=== PATIENT | male | born 1970 ===

== ENCOUNTER 2021-11-10 00:21 | Emergency (ER) | payer SELFPAY ==
[2021-11-10] MEDS ORDERED: Ibuprofen 800 MG TAB ONE (00:54)
[2021-11-10] MEDS ORDERED: Boostrix 0.5 ML (Tdap) VIAL (>/=7 yrs of age) ONE (00:54)
== END 2021-11-10 01:02 | disposition home or self-care (01) ==
LOC: ERS 00:21
DX: S00.01XA Abrasion of scalp, initial encounter (principal)
CPT/HCPCS: 90471; 90715